=== PATIENT | male | born 1995 | race Caucasian/White ===

== ENCOUNTER 2025-01-10 09:54 | Emergency (ER) | payer SELFPAY ==
[2025-01-10 09:57] VITALS: BP 145/92; PULSE 97; RESP 19; TEMP 36.7; O2SAT 100
--- OUTSIDE RECORDS SUMMARY | 2025-01-10 10:07 | XMS_ITS | Referral Summary ---
Author Organization [facility] Address [address] [place] [address] Care Team Providers Care Door Installer Name Role Phone [facility] ([facility]) Primary Care Provi escobar Source Comments [facility],non-[facility] Affiliates and Associated Physician Practices is amultiple site organization consisting of ambulatory clinics and hospital sitesin [place], [place], [place] and [place]. This disclosure is being madepursuant to the Care Everywhere program and may not contain all information available regarding this patient. Last updated 18.[facility] Allergies No known active allergies Medications * Be aware that medications may not be up to date on this document. Alwaysverify current medications with the patient. Medication Sig Dispensed Refills Start Date End Date Status oxycodone-acetaminoph en (PERCOCET) 5-325 MG tablet Take 1 Tab by mouth every 4 hours as needed for Pain. 45 Tab 0 10/12/2010 Active docusate sodium (COLACE) 100 MG capsule Take 1 Cap by mouth 2 times daily. While taking percocet 60 Cap 0 10/12/2010 Active Social History Tobacco Use Types Packs/Day Years Used Date Smoking Tobacco: Never Assessed Alcohol Use Standard Drinks/Week Comments No 0 (1 standard drink = 0.6 oz pur e alcohol) Sex and Gender Information Value Date Recorded Sex Assigned at Not on file Gender Identity Not on file Sexual Orientation Not on file Last Filed Vital Signs Vital Sign Reading Time Taken Comments Blood Pressure 114/62 10/15/2010 3:00 PM ENTHONE SOLDER STRIPPER Pulse 64 10/15/2010 3:00 PM ENTHONE SOLDER STRIPPER Temperature 36.9 C (98.4 F) 10/15/2010 3:00 PM ENTHONE SOLDER STRIPPER Respiratory Rate 16 10/15/2010 3:00 PM ENTHONE SOLDER STRIPPER Oxygen Saturation 98% 10/15/2010 3:00 PM ENTHONE SOLDER STRIPPER Inhaled Oxygen Concentration - - Weight 70.3 kg (154 lb 15.7 oz) 10/15/2010 8:01 AM ENTHONE SOLDER STRIPPER Height 182 cm (5' 11.65 ) 10/11/2010 8:45 AM ENTHONE SOLDER STRIPPER Body Mass Index 21.22 10/11/2010 8:45 AM ENTHONE SOLDER STRIPPER Plan of Treatment Not on file Care Teams Door Installer Relationship Specialty Start Date End Date [facility] ([facility]) [address] [place] [address] PCP - General 10/11/10
--- OUTSIDE RECORDS SUMMARY | 2025-01-10 10:07 | XMS_ITS | Patient Health Summary ---
Author Organization [facility] Address [address] [place] [address] Care Team Providers Care Labor Contract Analyst Name Role Phone [facility] ([facility]) Primary Care Provi escobar [facility],non-owned Affiliates and Associated Physician Practices is amultiple site organization consisting of ambulatory clinics and hospital sitesin [place], [place] and [place]. This disclosure is being madepursuant to the Care Everywhere program and may not contain all information available regarding this patient. Last updated 18.[facility] Allergies No known active allergies Medications * Be aware that medications may not be up to date on this document. Alwaysverify current medications with the patient. * oxycodone-acetaminophen (PERCOCET) 5-325 MG tablet(Started 10/12/2010) Take 1 Tab by mouth every 4 hours as needed for Pain. * docusate sodium (COLACE) 100 MG capsule(Started 10/12/2010) Take 1 Cap by mouth 2 times daily. While taking percocet Social History Tobacco Use Types Packs/Day Years [...] Comments Blood Pressure 114/62 10/15/2010 3:00 PM FIRE CONTROL TECHNICIAN B Pulse 64 10/15/2010 3:00 PM FIRE CONTROL TECHNICIAN B Temperature 36.9 C (98.4 F) 10/15/2010 3:00 PM FIRE CONTROL TECHNICIAN B Respiratory Rate 16 10/15/2010 3:00 PM FIRE CONTROL TECHNICIAN B Oxygen Saturation 98% 10/15/2010 3:00 PM FIRE CONTROL TECHNICIAN B Inhaled Oxygen Concentration - - Weight 70.3 kg (154 lb 15.7 oz) 10/15/2010 8:01 AM FIRE CONTROL TECHNICIAN B Height 182 cm (5' 11.65 ) 10/11/2010 8:45 AM FIRE CONTROL TECHNICIAN B Body Mass Index 21.22 10/11/2010 8:45 AM FIRE CONTROL TECHNICIAN B Procedures * LAB RESULTS ORDER(Performed 10/16/2010) * IMAGING/RADIOLOGY/XRAY RESULTS ORDER(Performed 10/16/2010) * PATHOLOGY/CYTOLOGY REPORT ORDER(Performed 10/16/2010) * URINALYSIS REFLEX TO MICROSCOPIC NO CULTURE(Performed 10/15/2010) * XR ABD OBSTRUCTION SERIES 2VW(Performed 10/15/2010) Performed for Abdominal pain, acute * DIFFERENTIAL MANUAL(Performed 10/15/2010) * CBC W AUTO DIFFERENTIAL(Performed 10/15/2010) * GROSS + MICRO EXAM(Performed 10/11/2010) Results * LAB RESULTS ORDER (10/16/2010 10:23 AM FIRE CONTROL TECHNICIAN B) Narrative Procedure Note Document, Scanned - 10/14/2010 6:10 AM FIRE CONTROL TECHNICIAN B Scanned Document LAB - THERAPEUTIC DR MARIANO MONITORING ORDERABLES * IMAGING/RADIOLOGY/XRAY RESULTS ORDER (10/16/2010 10:23 AM FIRE CONTROL TECHNICIAN B) Anatomical Region Laterality Modality Other Narrative Procedure Note Document, Scanned - 10/14/2010 6:10 AM FIRE CONTROL TECHNICIAN B Scanned Document IMAGING * PATHOLOGY/CYTOLOGY REPORT ORDER (10/16/2010 10:23 AM FIRE CONTROL TECHNICIAN B) Narrative Procedure Note Document, Scanned - 10/14/2010 6:10 AM FIRE CONTROL TECHNICIAN B Scanned Document LAB - PATHOLOGY/CYTO LOGY ORDERABLES * URINALYSIS ROUTINE AUTO (10/15/2010 10:51 AM FIRE CONTROL TECHNICIAN B) Color UA YELLOW [facility] Character UA CLEAR [facility] Specific [place] UA 1.015 1.003 - 1.030 [facility] pH UA 7.5 5.0 - 8.0 [facility] Protein UA NEGATIVE Negative [facility] Glucose UA NEGATIVE Negative gm/dl [facility] Ketone UA 1+ Negative [facility] Blood UA NEGATIVE Negative [facility] Bilirubin UA NEGATIVE Negative [facility] WBC UA rare /HPF [facility] Epithelial Cell UA rare /HPF [facility] Leukocyte UA NEGATIVE [facility] Nitrite UA NEGATIVE [facility] Urobilinogen UA 0.2 <=1.0 EU/dl [facility] URINE SPECIMEN OBTAINED BY CLEAN CATCH PROCEDURE / Unknown 10/15/2010 10:51 AM FIRE CONTROL TECHNICIAN B 10/15/2010 10:51 AM FIRE CONTROL TECHNICIAN B Kingsley Murphy MD LAB - URINALYSIS ORDERABLES Performing Organization Address City/State/[facility] Co de Phone Number [facility] [address] [place] [address] * XR ABD OBSTR SERIES (10/15/2010 9:39 AM FIRE CONTROL TECHNICIAN B) Anatomical Region Laterality Modality Abdomen Radiographic Meggan ging 10/15/2010 9:43 AM FIRE CONTROL TECHNICIAN B Impressions 10/15/2010 9:44 AM FIRE CONTROL TECHNICIAN B Bowel gas pattern consistent with adynamic ileus. No evidence of intestinal obstruction. Narrative 10/15/2010 9:44 AM FIRE CONTROL TECHNICIAN B Obstructive series performed October 15, 2010. History: Status post recent appendectomy now with abdominal pain. AP supine and upright views of the abdomen and pelvis were obtained. There is no evidence of intestinal obstruction or free intraperitoneal air. Several nondifferential air-fluid levels are seen in the abdomen and pelvis suggesting adynamic ileus. No heterotopic soft tissue calcifications are seen. The lung bases are clear. The visualized bony structures are intact. Procedure Note Paula Rodriguez MD - 10/15/2010 Obstructive series performed October 15, 2010. History: Status post recent appendectomy now with abdominal pain. AP supine and upright views of the abdomen and pelvis were obtained. There is no evidence of intestinal obstruction or free intraperitoneal air. Several nondifferential air-fluid levels are seen in the abdomen and pelvis suggesting adynamic ileus. No heterotopic soft tissue calcifications are seen. The lung bases are clear. The visualized bony structures are intact. IMPRESSION Bowel gas pattern consistent with adynamic ileus. No evidence of intestinal obstruction. Kingsley Murphy MD DIAGNOSTIC IMAGIN G ORDERABLES * DIFFERENTIAL MANUAL (10/15/2010 9:00 AM FIRE CONTROL TECHNICIAN B) Comment Manual Diff Done [facility] Band % Manual 2 % [facility] Neutrophils % Manual 68 31 - 78 % [facility] Lymphocytes % Manual 13 13 - 54 % [facility] Monocytes % Manual 6 4 - 13 % [facility] Eosinophils % Manual 3 0 - 8 % [facility] Atypical Lymphocyte % Manual 8 % [facility] RBC Morphology Slight Anisocytosis, Slight Poikylocytosis [facility] BLOOD SPECIMEN / Unknown 10/15/2010 9:00 AM FIRE CONTROL TECHNICIAN B 10/15/2010 9:44 AM FIRE CONTROL TECHNICIAN B Liya Soriano MD LAB - HEMATOLOGY ORD ERABLES Performing Organization Address City/[facility]/ZIP Co de Phone Number [facility] [address] [place] [address] * CBC W AUTO DIFFERENTIAL (10/15/2010 9:00 AM FIRE CONTROL TECHNICIAN B) WBC 9.21 4.5 - 11.0 K/cumm [facility] RBC 5.02 4.50 - 5.30 mill/cumm [facility] Hemoglobin 15.5 13.0 - 16.0 gm/dl [facility] Hematocrit 43.4 37.0 - 49.0 % [facility] MCV 86.5 78.0 - 98.0 cu microns [facility] MCH 30.9 25.0 - 35.0 uug [facility] MCHC 35.7 31.0 - 37.0 % [facility] RDW 12.4 % [facility] MPV 10.8 fl [facility] Platelet Count 266 100 - 400 K/cumm [facility] Comment Manual Diff Done [facility] BLOOD SPECIMEN / Unknown 10/15/2010 9:00 AM FIRE CONTROL TECHNICIAN B 10/15/2010 9:29 AM FIRE CONTROL TECHNICIAN B Kingsley Murphy MD LAB - HEMATOLOGY ORDERABLES Performing Organization Address City/[facility] Co de Phone Number [facility] [address] [place] [address] * GROSS + MICRO EXAM (10/11/2010 1:50 PM FIRE CONTROL TECHNICIAN B) [facility] Clinical History [facility] Comment: The patient is a 15-year-old boy with appendicitis who underwent laparoscopic appendectomy. Gross Description [facility] Comment: Submitted fresh in one container for gross and microscopic examination labeled with the patient's name, Reggie Dent, and appendix is a 8.5 x 2 x 1.5 cm in greatest dimension vermiform appendix with attached mesoappendix. The external surface is pink-hayes and congested. The proximal appendix and mesentery are stapled. The appendiceal lumen is filled with yellow-green purulent material and stool. The appendiceal wall is 3 mm in thickness. The appendiceal lumen varies from 2 mm to 5 mm in diameter. The specimen is serially sectioned, and field marketing representative sections are submitted in cassettes A1 and A2 . (CT/ld) Microscopic Examination [facility] Comment: 2 H+E. Sections from the appendix show patchy areas of mucosal necrosis with full-thickness extension of inflammatory cells through the wall. A necroinflammatory exudate is present over the serosa. The transmural infiltrate consists of neutrophils, lymphocytes, and eosinophils. No parasites, granulomas, or tumors are evident. (JAP/ld) Diagnosis [facility] Comment: DIAGNOSIS: APPENDIX, APPENDECTOMY: -APPENDICITIS. This case has been personally reviewed and interpreted by the attending (teaching) pathologist. Financial Operations Clerk MALU ROMERO, [facility] Pathologist Geo milan M.D. [facility] Electronically Signed By GEO Milan [facility] ENTIRE APPENDIX / Unknown 10/11/2010 1:50 PM FIRE CONTROL TECHNICIAN B 10/11/2010 3:10 PM FIRE CONTROL TECHNICIAN B Akin Ray MD LAB - PATHOLOGY/CYTO LOGY ORDERABLES Performing Organization Address City/State/[facility] de Phone Number [facility] [address] [place] [address] Care Teams Labor Contract Analyst Relationship Specialty Start Date End [facility] [address] [place] [address] PCP - General 10/11/10
--- OUTSIDE RECORDS SUMMARY | 2025-01-10 10:07 | XMS_ITS | Clinical Summary ---
Author Organization [facility] Address [address] [place] [address] Care Team Providers Care Chief Nurse Name Role Phone [facility] ([facility]) Primary Care Provi escobar Source Comments [facility],non-[facility] Affiliates and Associated Physician Practices is amultiple site organization consisting of ambulatory clinics and hospital sitesin [place], [place], [place] and [place]. This disclosure is being madepursuant to the Care Everywhere program and may not contain all information available regarding this patient. Last updated 18.[facility] [employer] Allergies No known active allergies Medications * [...] Comments Blood Pressure 114/62 10/15/2010 3:00 PM SHUTTLE VENEERING SUPERVISOR Pulse 64 10/15/2010 3:00 PM SHUTTLE VENEERING SUPERVISOR Temperature 36.9 C (98.4 F) 10/15/2010 3:00 PM SHUTTLE VENEERING SUPERVISOR Respiratory Rate 16 10/15/2010 3:00 PM SHUTTLE VENEERING SUPERVISOR Oxygen Saturation 98% 10/15/2010 3:00 PM SHUTTLE VENEERING SUPERVISOR Inhaled Oxygen Concentration - - Weight 70.3 kg (154 lb 15.7 oz) 10/15/2010 8:01 AM SHUTTLE VENEERING SUPERVISOR Height 182 cm (5' 11.65 ) 10/11/2010 8:45 AM SHUTTLE VENEERING SUPERVISOR Body Mass Index 21.22 10/11/2010 8:45 AM SHUTTLE VENEERING SUPERVISOR Plan of Treatment Health Maintenance Due Date Last Done Comments HIV SCREENING 02/09/2008 HEPATITIS C SCREENING 02/04/2011 DTAP/TDAP/TD VACCINES (1 - Tdap) 02/09/2012 HEPATITIS B VACCINE (1 of 3 - 19+ 3-dose series) 02/09/2012 COVID-19 VACCINE ( - 2023-2 5 season) 2024 INFLUENZA VACCINE (#1) 2024 DEPRESSION SCREENING 10/28/2024 ZOSTER VACCINE (1 of 2) 2043 HIB VACCINE Aged Out No longer eligi ble based on patient's age to complete this topic HPV VACCINE Aged Out No longer eligi ble based on patient's age to complete this topic MENINGOCOCCAL (Group B) VACC INE SHARED DECISION-MAKING Aged Out No longer eligibl e based on patient's age to complete this topic MENINGOCOCCAL GROUPS A/C/Y/W VACCINE Aged Out No longer eligible b ased on patient's age to complete this topic PNEUMOCOCCAL VACCINE Aged Out No long er eligible based on patient's age to complete this topic Care Teams Chief Nurse Relationship Specialty Start Date End Date [facility] ([facility]) [address] [place] [address] PCP - General 10/11/10
--- NOTE | 2025-01-10 10:31 | ED_ITS ---
HPI - General Adult General Chief complaint: Dental/Oral Stated complaint: toothache Time Seen by Provider: 01/10/25 09:58 History of Present Illness HPI narrative: 29-year-old male presents emergency department for evaluation for pain from a fractured tooth. Patient states pain has been bothering him for the last 3 days. Patient does have dental insurance but does not typically follow up with a dentist. Related Data Allergies Allergy/AdvReac Type Severity Reaction Status Date / Time No Known Allergies Allergy Verified 01/10/25 10:05 Review of Systems Review of Systems: All systems reviewed & are unremarkable except as noted in HPI and below Exam Narrative: APPEARANCE: Well appearing, no pain, no distress, well-nourished. HEAD: normocephalic, atraumatic. EYES: PERRLA/EOMI, conjunctivae clear. NOSE: Normal no drainage EARS:TMS clear with good light reflex. THROAT: Pharynx clear, no exudate. NECK: Supple. No adenopathy, no masses. RESPIRATORY: Airway patent, respirations nonlabored. Clear to auscultation bilaterally, no rales, rhonchi, wheezing. CARDIOVASCULAR: Regular rate and rhythm without murmurs rubs or gallops. ABDOMINAL: Soft, nontender, nondistended, normal bowel sounds MUSCULOSKELETAL: Moves all extremities. Strength/ROM intact, No edema, No calf tenderness. NEURO: Alert. Cranial nerves II through XII intact. Good gait. Good coordination SKIN: Warm, dry. Normal Color Course Vital Signs Vital signs: Vital Signs Temperature 98.1 F 01/10/25 09:57 Pulse Rate 97 01/10/25 09:57 Respiratory Rate 19 01/10/25 09:57 Blood Pressure 145/92 H 01/10/25 09:57 Pulse Oximetry 100 01/10/25 09:57 Oxygen Delivery Room Air 01/10/25 09:57 Temperature 98.1 F 01/10/25 09:57 Pulse Rate 66 01/10/25 10:51 Respiratory Rate 15 01/10/25 10:51 Blood Pressure 133/82 01/10/25 10:51 Pulse Oximetry 99 01/10/25 10:51 Oxygen Delivery Room Air 01/10/25 09:57 Medical Decision Making [facility] Narrative Medical decision making narrative: 29-year-old male presents to the emergency department for evaluation for dental pain. Patient does have dental fracture. No abscess, no trismus, patient was started on antibiotics emergency department encouraged of close follow-up with his dentist. All questions concerns were addressed. Differential Diagnosis Differential Diagnosis: Trismus, abscess, dental and infection, dental barbara, dental fracture Vital Signs Vital Signs: Vital Signs Temperature 98.1 F 01/10/25 09:57 Pulse Rate 97 01/10/25 09:57 Respiratory Rate 19 01/10/25 09:57 Blood Pressure 145/92 H 01/10/25 09:57 Pulse Oximetry 100 01/10/25 09:57 Oxygen Delivery Room Air 01/10/25 09:57 Temperature 98.1 F 01/10/25 09:57 Pulse Rate 66 01/10/25 10:51 Respiratory Rate 15 01/10/25 10:51 Blood Pressure 133/82 01/10/25 10:51 Pulse Oximetry 99 01/10/25 10:51 Oxygen Delivery Room Air 01/10/25 09:57 Discharge Plan Discharge Clinical Impression: Dental caries Patient Disposition: Home, Self-Care Condition: Stable Instructions: Antibiotic Form, Toothache (ED) Additional Instructions: Antibiotic as directed until completed. Ibuprofen for pain control. [place] as needed for additional pain control. Have close follow-up with your dentist. If you have any worsening symptoms please call or return to the emergency department. Patient Language: French Prescriptions: New hydrocodone-acetaminophen 5-325 mg tablet 1 tablet PO Q12H PRN (Reason: pain) Qty: 14 0RF amoxicillin-pot clavulanate 875-125 mg tablet 1 tablet PO Q12H 7 Days Qty: 14 0RF Follow-up/Referrals: PHYSICIAN,SUPPLY CHAIN BUSINESS ANALYST [Primary Care Provider] -
[2025-01-10] MEDS: HYDROcodone/acetaminophen (*CRX) 10-325 MG TABLET 1 TAB PO (10:41)
[2025-01-10] MEDS: AMOXICILLIN/CLAVULANATE K 875-125 MG TAB 1 TABLET PO (10:41)
[2025-01-10] MEDS: KETOROLAC (*BKC) 60 MG/2 ML VIAL IM (10:41)
[2025-01-10 10:51] VITALS: BP 133/82; PULSE 66; RESP 15; O2SAT 99
== END 2025-01-10 10:53 | disposition home or self-care (01) ==
PROVIDERS: Emergency Provider Emergency Medicine
DX: K02.9 Dental caries, unspecified (principal)
CPT/HCPCS: 96372; 99283; A9270; J1885